=== PATIENT | male | born 1945 | race Caucasian/White ===

== ENCOUNTER 2023-09-24 07:09 | Outpatient (CLI) | payer OTHER | END 2023-09-24 07:17 | disposition home or self-care (01) | LOC: RX STUDY 07:09 | PROVIDERS: ATTEND Internal Medicine Pulmonary Disease | DX: R13.11 Dysphagia, oral phase (principal); R05.3 Chronic cough; Z87.891 Personal history of nicotine dependence; R13.10 Dysphagia, unspecified ==

== ENCOUNTER → 2023-11-14 07:09 | Outpatient (CLI) | payer OTHER | END | disposition home or self-care (01) | LOC: LAB 07:09 | PROVIDERS: ATTEND Internal Medicine Gastroenterology | DX: J20.9 Acute bronchitis, unspecified (principal); R05.9 Cough, unspecified; R06.2 Wheezing ==